=== PATIENT | female | born 1955 | race Hispanic/Latino ===

== ENCOUNTER 2019-10-03 23:05 | Emergency (ER) | payer OTHER, SELFPAY ==
[2019-10-04 00:13] LABS: BASOPHILS % (AUTO) 0.6 % (0.0-5.0); EOSINOPHILS % (AUTO) 2.3 % (0.0-8.0); HEMATOCRIT 38.3 % (36-48); LYMPHOCYTES % (AUTO) 33.5 % (21.0-51.0); MEAN CORPUSCULAR HEMOGLOBIN 28.9 pg (27.0-33.0); MEAN CORPUSCULAR HGB CONC 32.4 g/dL (32.0-36.0); MEAN CORPUSCULAR VOLUME 89.3 fL (79-99); MONOCYTES % (AUTO) 6.8 % (3.0-13.0); NEUTROPHILS % (AUTO) 56.6 % (40.0-77.0); PLATELET COUNT (AUTO) 292 K/uL (130-400); RED BLOOD CELL COUNT(AUTO) 4.29 MIL/uL (4.00-5.50); WHITE BLOOD COUNT (AUTO) 10.2 K/uL (4.8-10.8)
[2019-10-04 00:26] LABS: CREATININE 0.8 mg/dL (0.5-1.5); POTASSIUM 3.6 mmol/L (3.5-5.1)
[2019-10-04 00:31] LABS: ALBUMIN 3.5 g/dL (3.5-5.0); BILIRUBIN,TOTAL 0.5 mg/dL (0.2-1.0); TOTAL PROTEIN, SERUM 7.6 g/dL (6.0-8.3)
[2019-10-04] MEDS ORDERED: KETOROLAC TROMETHAMINE 60 MG/2 ML VIAL ONE (00:48)
[2019-10-04] MEDS ORDERED: ORPHENADRINE CITRATE 30 MG/ML ML ONE (00:48)
[2019-10-04] MEDS ORDERED: LIDOCAINE 5% TOPICAL PATCH TP ONE (00:52)
[2019-10-04 00:59] LABS: INR 1.03 (0.85-1.15); PARTIAL THROMBOPLASTIN TIME 24.7 SEC (26.3-35.5); PROTHROMBIN TIME 10.8 SEC (9.6-11.6)
== END 2019-10-04 01:25 | disposition home or self-care (01) ==
LOC: EDH 23:05
DX: R51 Headache (principal); M62.838 Other muscle spasm; E03.9 Hypothyroidism, unspecified; E78.5 Hyperlipidemia, unspecified; Z98.890 Other specified postprocedural states
CPT/HCPCS: 36415; 80053; 85025; 85610; 85730; 96372 ×2; 99284; J1885; J2360

== ENCOUNTER 2019-10-09 23:54 | Emergency (ER) | payer OTHER | END 2019-10-09 23:59 | disposition left against medical advice (07) | LOC: EDH 23:54 | DX: Z53.21 Procedure and treatment not carried out due to patient leaving prior to being seen by health care provider (principal); E78.5 Hyperlipidemia, unspecified; I10 Essential (primary) hypertension; Z98.890 Other specified postprocedural states ==

== ENCOUNTER 2023-01-23 20:12 | Emergency (ER) | payer OTHER ==
[~2023-01-23] VITALS: Ht 152.4 cm; Wt 44.9 kg
[2023-01-23] MEDS ORDERED: LACTATED RINGERS 1000ML 1,000 ML IV ONE (21:00)
[2023-01-23] MEDS ORDERED: ONDANSETRON 4MG INJ IVP ONE (21:00)
[2023-01-23 21:12] LABS: BASOPHILS % (AUTO) 0.5 % (0.0-5.0); EOSINOPHILS % (AUTO) 0.2 % (0.0-8.0); LYMPHOCYTES % (AUTO) 25.5 % (21.0-51.0); MEAN CORPUSCULAR HEMOGLOBIN 29.8 pg (27.0-33.0); MEAN CORPUSCULAR HGB CONC 33.7 g/dL (32.0-36.0); MEAN CORPUSCULAR VOLUME 88.3 fL (79-99); MONOCYTES % (AUTO) 5.4 % (3.0-13.0); NEUTROPHILS % (AUTO) 68.2 % (40.0-77.0); PLATELET COUNT (AUTO) 204 K/uL (130-400); RED BLOOD CELL COUNT(AUTO) 4.87 MIL/uL (4.00-5.50); RED CELL DISTRIBUTION WIDTH 12.6 % (11.0-15.5); WHITE BLOOD COUNT (AUTO) 4.2 K/uL (4.8-10.8)
[2023-01-23 21:26] LABS: ALBUMIN 3.7 g/dL (3.5-5.0); CREATININE 0.9 mg/dL (0.5-1.5); TOTAL PROTEIN, SERUM 7.8 g/dL (6.0-8.3)
[2023-01-23 21:56] LABS: POTASSIUM 2.7 mmol/L (3.5-5.1)
[2023-01-23] MEDS ORDERED: IOHEXOL 350 MG/ML 100ML INFUS..BTL IV ONE (21:58)
[2023-01-23] MEDS ORDERED: KCL 20 MEQ ERTAB PO ONE (22:08)
[2023-01-23] MEDS ORDERED: POTASSIUM CHLORIDE 10MEQ/100ML 100 ML IV ONE (22:08)
[2023-01-23] MEDS ORDERED: POTASSIUM CHLORIDE 10MEQ/100ML 10 MEQ/100 ML ML IV ONE (22:30)
[2023-01-23] MEDS ORDERED: POTASSIUM CHLORIDE 10% ELIXIR 20 MEQ/15 ML UDCUP PO ONE (22:30)
[2023-01-23 23:23] VITALS: BP 140/81
[2023-01-23] MEDS ORDERED: LOPE2TAB26 PO (23:24)
[2023-01-23] MEDS ORDERED: ONDA4TAB10 PO (23:24)
[2023-01-23] MEDS ORDERED: CIPR750T17 PO (23:24)
[2023-01-23] MEDS ORDERED: LEVOFLOXACIN 500 MG TABLET PO ONE (23:30)
== END 2023-01-23 23:34 | disposition home or self-care (01) ==
LOC: EDH 20:12
DX: K52.9 Noninfective gastroenteritis and colitis, unspecified (principal); E87.6 Hypokalemia; E03.9 Hypothyroidism, unspecified; E78.00 Pure hypercholesterolemia, unspecified; Z98.890 Other specified postprocedural states
CPT/HCPCS: 99285; 74177; 96365; 96375; 80053; 83690; 85025; 36415; 87507; 83630; J7120; J2405; Q9967

== ENCOUNTER 2023-07-07 19:46 | Emergency (ER) | payer OTHER ==
[~2023-07-07] VITALS: Ht 149.9 cm; Wt 47.2 kg
[~2023-07-07 19:46] MED LIST: CIPR750T17 PO; LOPE2TAB26 PO; ONDA4TAB10 PO
[2023-07-07] MEDS ORDERED: ONDANSETRON 4MG INJ IVP ONE (23:00)
[2023-07-07] MEDS ORDERED: FAMOTIDINE 20MG VIAL IV ONE (23:00)
[2023-07-07] MEDS ORDERED: PROCHLORPERAZINE 10MG/2ML INJ IV ONE (23:00)
[2023-07-07 23:26] LABS: BASOPHILS # (AUTO) 0.08 K/uL (0.00-0.20); BASOPHILS % (AUTO) 0.6 % (0.0-5.0); EOSINOPHILS # (AUTO) 0.05 K/uL (0.00-0.70); EOSINOPHILS % (AUTO) 0.4 % (0.0-8.0); HEMATOCRIT 41.6 % (36-48); IMMATURE GRANULOCYTE ABSOLUTE 0.04 K/uL (0-1); LYMPHOCYTES # (AUTO) 2.9 K/uL (1.0-4.8); LYMPHOCYTES % (AUTO) 21.8 % (21.0-51.0); MEAN CORPUSCULAR HGB CONC 32.9 g/dL (32.0-36.0); MONOCYTES # (AUTO) 0.7 K/uL (0.1-1.0); MONOCYTES % (AUTO) 5.3 % (3.0-13.0); NEUTROPHILS # (AUTO) 9.7 K/uL (1.8-7.7); NEUTROPHILS % (AUTO) 71.6 % (40.0-77.0); PLATELET COUNT (AUTO) 269 K/uL (130-400); RED BLOOD CELL COUNT(AUTO) 4.57 MIL/uL (4.00-5.50); RED CELL DISTRIBUTION WIDTH 13.2 % (11.0-15.5); WHITE BLOOD COUNT (AUTO) 13.5 K/uL (4.8-10.8)
[2023-07-07 23:41] LABS: CREATININE 0.6 mg/dL (0.5-1.5); POTASSIUM 3.9 mmol/L (3.5-5.1)
[2023-07-07 23:46] LABS: ALBUMIN 3.6 g/dL (3.5-5.0); BILIRUBIN,TOTAL 0.6 mg/dL (0.2-1.0); TOTAL PROTEIN, SERUM 6.9 g/dL (6.0-8.3)
[2023-07-08 00:51] LABS: APPEARANCE,URINE CLOUDY (CLEAR); BILIRUBIN,URINE NEGATIVE (NEGATIVE); COLOR,URINE COLORLESS (YELLOW); GLUCOSE, URINE (UA) NEGATIVE (NEGATIVE); KETONES,URINE 5 mg/dL (NEGATIVE); LEUKOCYTE ESTERASE ,URINE 75 Leu/uL (NEGATIVE); NITRATE,URINE NEGATIVE (NEGATIVE); PROTEIN,URINE NEGATIVE (NEGATIVE); UROBILINOGEN,URINE 0.2 mg/dL (0.2-1.0)
[2023-07-08 00:55] LABS: ADD UA MICROSCOPIC YES
[2023-07-08 01:07] LABS: BACTERIA,URINE Few /HPF (None Seen); SQUAMOUS EPITHELIAL CELL,UR Few /HPF (0-2)
[2023-07-08 01:29] VITALS: BP 118/63; PULSE 80; RESP 18; O2SAT 98
[2023-07-08] MEDS ORDERED: FAMO-136 PO (02:15)
== END 2023-07-08 02:28 | disposition home or self-care (01) ==
LOC: EDH 19:46
DX: K29.00 Acute gastritis without bleeding (principal); E86.0 Dehydration; E78.00 Pure hypercholesterolemia, unspecified; E03.9 Hypothyroidism, unspecified
CPT/HCPCS: 99285; 74176; 96374; 96375; 84484; 80053; 85025; 87077; 87088; 87186; 81001; 36415; 93005; J3490; J0780; J2405

== ENCOUNTER 2025-03-31 23:44 | Emergency (ER) | payer OTHER, MEDICARE ==
[~2025-03-31] VITALS: Ht 144.8 cm; Wt 46.7 kg
[~2025-03-31 23:44] MED LIST changes: -CIPR750T17 PO; +CIPR750T90 PO; +FAMO-136 PO; +ONDA-243 PO; -ONDA4TAB10 PO
[2025-04-01 00:38] LABS: IMMATURE GRANULOCYTE ABSOLUTE 0.02 K/uL (0-1); NUCLEATED RED BLOOD CELLS 0.0 % (0.0-0.19); PLATELET COUNT (AUTO) 272 K/uL (130-400); RED BLOOD CELL COUNT(AUTO) 4.33 MIL/uL (4.00-5.50); RED CELL DISTRIBUTION WIDTH 13.2 % (11.0-15.5); WHITE BLOOD COUNT (AUTO) 8.9 K/uL (4.8-10.8)
[2025-04-01 00:48] LABS: CREATININE 0.5 mg/dL (0.5-1.0); GLOMERULAR FILTR. RATE CALC 102.0 mL/min (>90); GLUCOSE,RANDOM 113.0 mg/dL (70-105); SODIUM SERUM 145.0 mmol/L (136-145); UREA NITROGEN, BLOOD 16.0 mg/dL (7-18)
[2025-04-01 00:52] LABS: ADD UA MICROSCOPIC NO; APPEARANCE,URINE CLEAR (CLEAR); GLUCOSE, URINE (UA) NEGATIVE (NEGATIVE); LEUKOCYTE ESTERASE ,URINE NEGATIVE Leu/uL (NEGATIVE); NITRATE,URINE NEGATIVE (NEGATIVE); OCCULT BLOOD,URINE NEGATIVE (NEGATIVE)
[2025-04-01 00:53] LABS: CREATINE KINASE, TOTAL 98.0 U/L (21-232)
[2025-04-01] MEDS: LACTATED RINGERS 1000ML IV STA (01:57)
--- NOTE | 2025-04-01 02:14 | HMCIMG ---
EXAM: CR Chest, 1 view CLINICAL HISTORY: Chest pain. COMPARISON: Chest radiograph dated 05/09/2014. FINDINGS: The lungs show no infiltrates or other acute findings. No pleural effusion or pneumothorax. The cardiomediastinal silhouette is within normal limits. No acute osseous abnormality. IMPRESSION: No acute cardiopulmonary process is evident. No interval changes. /[place]
--- NOTE | 2025-04-01 02:38 | ERN ---
General Chief Complaint: Hypertension Stated Complaint: C/O HIGH B/P W/ HEADACHE, CP Time Seen by MD: 23:48 Source: patient History of Present Illness Initial Comments Patient is a 69-year-old female who comes in with a headache and a feeling of chest pressure and associated nausea and vomiting. In addition a blood pressure measured at home showed systolic blood pressure. Blood pressure here on admission was 187 systolic Timing/Duration: 4-6 hours Severity: mild Allergies: Coded Allergies: No Known Drug Allergies (Unverified Allergy, Unknown, 10/10/19) Home Meds Active Scripts Famotidine (Pepcid) 20 Mg Tablet, 20 MG PO BID for 30 Days, #60 TAB Prov:SO YAÑEZ MD 07/08/23 Loperamide HCl (Loperamide) 2 Mg Tablet, 2 MG PO 5X/DAY for with every diarrhea, #12 TAB 0 Refills Prov:CHARLIE AUGUSTIN MD 01/23/23 Ondansetron (Ondansetron Odt) 4 Mg Tab.rapdis, 4 MG PO Q6H for nausea, #10 TAB 0 Refills Prov:CHARLIE AUGUSTIN MD 01/23/23 Ciprofloxacin HCl (Cipro) 750 Mg Tab, 750 MG PO BID for 3 Days, #6 TAB 0 Refills Prov:CHARLIE AUGUSTIN MD 01/23/23 Past Medical History Past Medical History: High Cholesterol, Hypertension, Hypothyroid Past Surgical History: Social History Social History: Negative Constitutional: (-) chills, (-) diaphoresis, (-) fever, (-) malaise, (-) weakness, (-) other documentation EENTM: (-) eye pain, (-) blurred vision, (-) tearing, (-) double vision, (-) ear pain, (-) ear discharge, (-) nose pain, (-) nose congestion, (-) throat pain, (-) Throat swelling, (-) mouth pain, (-) tooth pain, (-) mouth swelling, (-) other documentation Respiratory: (-) cough, (-) orthopnea, (-) short of breath, (-) stridor, (-) wheezing, (-) other documentation Cardiovascular: (+) other documentation (Chest tightness) Gastrointestinal/Abdominal: (+) nausea, (+) vomiting Musculoskeletal: (-) Neck pain, (-) back pain, (-) Flank Pain, (-) joint pain, (-) joint swelling, (-) muscle pain, (-) muscle stiffness, (-) gout, (-) other documentation Neuro: (+) headache Physical Exam General Appearance: (+) mild distress Orientation: (+) alert, (+) oriented x 3 Head/Face Trauma: No Eye: bilateral eye normal inspection, bilateral eye PERRL, bilateral eye EOMI Ear, Nose, Throat: (+) hearing grossly normal, (+) normal ENT inspection Neck: (+) normal inspection, (+) supple, (+) full range of motion Respiratory: (+) chest non-tender, (+) lungs clear, (+) well ventilated Heart: (+) regular, (+) no gallop Vascular: (+) no edema, (+) normal peripheral pulse Gastrointestinal: (+) soft, (+) non-tender, (+) bowel sound present Skin Comment There is strong tenting of the skin on the dorsal surface of her hands Results Laboratory and Microbiology Lab and Micro Result Laboratory Tests Test 04/01/25 00:29 04/01/25 00:44 White Blood Count 8.9 K/uL (4.8-10.8) Red Blood Count 4.33 MIL/uL (4.00-5.50) Hemoglobin 12.7 g/dL (12.0-16.0) Hematocrit 39.5 % (36-48) Mean Corpuscular Volume 91.2 fL (79-99) Mean Corpuscular Hemoglobin 29.3 pg (27.0-33.0) Mean Corpuscular Hemoglobin Concent 32.2 g/dL (32.0-36.0) Red Cell Distribution Width 13.2 % (11.0-15.5) Platelet Count 272 K/uL (130-400) Mean Platelet Volume 11.1 fL (7.5-10.5) H Immature Granulocyte % (Auto) 0.2 % (0-1) Neutrophils (%) (Auto) 45.3 % (40.0-77.0) Lymphocytes (%) (Auto) 43.7 % (21.0-51.0) Monocytes (%) (Auto) 8.2 % (3.0-13.0) Eosinophils (%) (Auto) 2.0 % (0.0-8.0) Basophils (%) (Auto) 0.6 % (0.0-5.0) Neutrophils # (Auto) 4.0 K/uL (1.8-7.7) Lymphocytes # (Auto) 3.9 K/uL (1.0-4.8) Monocytes # (Auto) 0.7 K/uL (0.1-1.0) Eosinophils # (Auto) 0.18 K/uL (0.00-0.70) Basophils # (Auto) 0.05 K/uL (0.00-0.20) Absolute Immature Granulocyte (auto 0.02 K/uL (0-1) Nucleated Red Blood Cells 0.0 % (0.0-0.19) Sodium Level 145 mmol/L (136-145) Potassium Level 4.3 mmol/L (3.5-5.1) Chloride Level 107 mmol/L (101-111) Carbon Dioxide Level 29 mmol/L (21-32) Blood Urea Nitrogen 16 mg/dL (7-18) Creatinine 0.5 mg/dL (0.5-1.0) Glomerular Filtration Rate Calc 102 mL/min (>90) Random Glucose 113 mg/dL (70-105) H Total Calcium 9.7 mg/dL (8.5-10.1) Total Creatine Kinase 98 U/L (21-232) # Troponin I High Sensitivity < 4 ng/L (4-50) L Urine Color COLORLESS (YELLOW) Urine Appearance CLEAR (CLEAR) Urine pH 6.5 (5.0-8.0) Urine Specific [place] 1.003 (1.001-1.031) Urine Protein NEGATIVE mg/dL (NEGATIVE) Urine Glucose (UA) NEGATIVE mg/dL (NEGATIVE) Urine Ketones NEGATIVE mg/dL (NEGATIVE) Urine Occult Blood NEGATIVE (NEGATIVE) Urine Nitrate NEGATIVE (NEGATIVE) Urine Bilirubin NEGATIVE mg/dL (NEGATIVE) Urine Urobilinogen 0.2 mg/dL (0.2-1.0) Urine Leukocyte Esterase NEGATIVE Bautista/uL MDM MDM: Differential diagnosis: Patient's certainly could be having a heart attack. Or asthma attack or dehydration or a tachy arrhythmia or high blood pressure. Rationale: Tests considered and ordered secondary to shared decision making include: Previous outside records reviewed: Old ER visits. Risk of complication and/or morbidity or mortality of patient management: None Medications-Per medication reconciliation Need for hospitalization: Patient does meet criteria for hospitalization. Need for emergency major/minor surgery: No There are no social concerns with this patient. Prescription drug management Prescriptions will include symptomatic care Patient's prior external medical records from other ER visits were reviewed by me as indicated. Prior testing and results from previous visits were reviewed. Prior tests were taken into account with medical decision making and resource utilization, independent historian/historians were used to obtain complete medical history. Patient's cardiac workup is negative chemistry panel is negative urine analysis is negative. Of note the patient's serum sodium is 145. Patient's chest x-ray is normal. Patient has received half of the fluid bolus I ordered she said her headache is gone her systolic blood pressure is now normal. Her only remaining complaint is her chest pressure. I will send her home once this L bolus has completed. I independently interpreted the test that were performed, results were reviewed by me and considered findings on radiology if ordered. ED Course Orders Procedure Category Date Status Time 12 Lead Ekg Tracing- EKG 03/31/25 Logged Technical 23:48 Vital Signs Per CPOE 04/01/25 Transmitted Routine 00:28 Chest 1vw RAD 04/01/25 Resulted 00:28 Oxygen By Nc/Pulse Ox CPOE 04/01/25 Transmitted 00:28 Maintain Iv CPOE 04/01/25 Transmitted 00:28 Iv Insertion CPOE 04/01/25 Transmitted 00:28 Cardiac Monitoring CPOE 04/01/25 Transmitted 00:28 Pulse Oximetry With CPOE 04/01/25 Transmitted Vs And Prn 00:28 Cbc With Differential LAB 04/01/25 Complete 00:28 Activity: Br W/Brp CPOE 04/01/25 Transmitted With Assist 00:28 Creatine Kinase, Total LAB 04/01/25 Complete 00:28 Troponin I High LAB 04/01/25 Complete Sensitivity 00:28 Urinalysis Profile LAB 04/01/25 Complete 00:28 Basic Metabolic Panel LAB 04/01/25 Complete 00:28 Lactated Ringers PHA 04/01/25 Complete 1000ml (Lactated 01:45 Current Medications Medications (Trade) Dose Ordered Sig/Khadra Route PRN Reason Start Time Stop Time Status Last Admin Dose Admin Lactated Ringer's (Lactated Ringers 1000ml) 1,000 ml BOLUS STAT IV 04/01/25 01:45 04/01/25 01:47 DC 7/8/25 01:57 Vital Signs Date Time Temp Pulse Resp B/P (MAP) Pulse Ox O2 Delivery O2 Flow Rate FiO2 04/01/25 01:40 66 16 137/58 99 Room Air* 0 21 04/01/25 00:31 98.4 71 18 139/58 100 Room Air* 0 21 03/31/25 23:49 98.6 77 20 187/67 100 Room Air DX & DISP Disposition: Discharge Departure Impression: Primary Impression: Headache Additional Impressions: Chest pressure, Dehydration Condition: Stable Additional Instructions: Your laboratory studies suggest dehydration with a high serum sodium. Your chest x-ray is normal your cardiac enzymes are normal your other chemistry panel is normal and your CBC is normal. I did not hear any wheezing when I listened to your lung sounds I do not think the symptoms are from asthma. I think you were dehydrated. It is a good idea to drink enough fluid each day to have your urine run clear. I expect your chest tightness we will resolve once your fluid boluses complete. Please follow-up with her primary care physician if this chest tightness continuous. Referrals: ALINE WOMACK M.D. (PCP) JAZIEL ZAPATA MD Apr 01, 2025 02:38
[2025-04-01 03:10] VITALS: BP 114/54; PULSE 76; RESP 16; TEMP 98.2; O2SAT 99
--- NOTE | 2025-04-01 06:38 | EKG ---
[facility] Test Date: 2025-03-31 Test Time: 23:46:32 Pat Name: LORI ALFRED Department: [facility] Room: Gender: F Director Online Marketing: [facility]– [place][note 2] : 1955 Requested By: JAZIEL ZAPATA Order Number: [id number] Reading MD: Lauren Jacob Measurements Intervals [place] Rate: 78 P: 29 MI: 153 QRS: 20 QRSD: 77 T: 0 QT: 375 QTc: 429 Interpretive Statements Sinus rhythm Low voltage, precordial leads Compared to ECG 07/08/2023 02:18:42 T-wave abnormality no longer present Electronically Signed On 04-02-2025 14:11:58 CDT by Lauren Jacob Please click the below link to view image of tracing.
== END 2025-04-01 03:12 | disposition home or self-care (01) ==
LOC: EDH 23:44
DX: R51.9 Headache, unspecified (principal); R07.89 Other chest pain; E86.0 Dehydration; E03.9 Hypothyroidism, unspecified; E78.00 Pure hypercholesterolemia, unspecified; I10 Essential (primary) hypertension; Z79.899 Other long term (current) drug therapy
CPT/HCPCS: 99285; 82550; 84484; 80048; 85025; 81003; 36415; 93005; 96360; 71045; J7120